=== PATIENT | male | born 2000 ===

== ENCOUNTER 2024-06-03 19:06 | Emergency (ER) | payer OTHER ==
[2024-06-03 19:34] VITALS: BP 121/74; PULSE 62
[2024-06-03] MEDS: Diphtheria,Pertussis(Acell),Tetanus Vaccine 0.5 ML Syringe IM ONE (19:51)
[2024-06-03] MEDS: Bacitracin Oint 1 GM U/D Packet TOP ONE (19:56)
[2024-06-03] MEDS: Lidocaine 1% with EPINEPHrine 1:100,000 50 ML MDV INFILT ONE (19:56)
== END 2024-06-03 20:07 | disposition home or self-care (01) ==
LOC: LB.ED 19:06
DX: S20.451A Superficial foreign body of right back wall of thorax, initial encounter (principal); Z23 Encounter for immunization; W45.8XXA Other foreign body or object entering through skin, initial encounter; Y93.89 Activity, other specified
CPT/HCPCS: 90471; 90715; 99283-25